=== PATIENT | male | born 1930 | race Caucasian/White ===

== ENCOUNTER 2017-10-27 09:23 | Emergency (ER) | payer MEDICARE, OTHER ==
[2017-10-27 09:23] VITALS: BMI 31.3
[2017-10-27 09:30] VITALS: BP 141/65; PULSE 82; RESP 20; TEMP 98.1; O2SAT 98
[2017-10-27] MEDS ORDERED: Albuterol 0.083% Inhal Sol (2.5 mg/3 mL) UD INH STA (10:26)
--- NOTE | 2017-10-27 10:29 | ED PDOC ---
HPI: CCC, URI, Sore Throat Time Seen by Provider: 10/27/17 09:44 Chief Complaint (Nursing): Cough, Cold, Congestion Chief Complaint (Provider): Cough History Per: Patient History/Exam Limitations: no limitations Onset/Duration Of Symptoms: Days (x5) Current Symptoms Are (Timing): Constant Location Of Pain: None Associated Symptoms: Cough (dry). denies: Fever, Chills, Sore Throat, Nausea, Vomiting, Diarrhea Ear Symptoms: Bilateral: None Additional Complaint(s): 87 year old male presenting with dry cough x5 days. The patient reports that for the past few days his cough has been associated with chest tightness and he feels as though he is unable to breathe. Denies fever, chills, sputum production , nausea, vomiting, diarrhea. PMD: NO PRIMARY CARE PROVIDER Past Medical History Reviewed: Historical Data, Nursing Documentation, Vital Signs Vital Signs: Last Vital Signs Temp 98.1 F 10/27/17 09:29 Pulse 82 10/27/17 09:29 Resp 20 10/27/17 09:29 BP 141/65 10/27/17 09:29 Pulse Ox 98 10/27/17 12:45 - Medical History PMH: HTN Denies: Asthma, Bronchitis - Surgical History Surgical History: CABG (x4), Coronary Stent (x7) - Family History Family History: States: Unknown Family Hx - Social History Current smoker - smoking cessation education provided: No Ex-Smoker (has not smoked in the last 12 months): No Alcohol: None Drugs: Denies - Immunization History Hx Tetanus Toxoid Vaccination: No Hx Influenza Vaccination: No Hx Pneumococcal Vaccination: Yes - Home Medications Home Medications: Ambulatory Orders Medication Instructions Recorded Diovan 1 tab DAILY 03/26/15 Metoprolol Succinate 1 tab DAILY 03/26/15 Aspirin 325 mg PO DAILY 05/27/17 Valsartan [Diovan] 320 mg PO DAILY 05/27/17 Aspirin [Aspirin Chewable] 81 mg PO DAILY #90 chew 07/23/17 Clopidogrel [Plavix] 75 mg PO DAILY #90 tab 07/23/17 Enoxaparin [Lovenox] 30 mg SC DAILY syr 07/23/17 Famotidine [Pepcid] 20 mg PO BID tab 07/23/17 Fluticasone Propionate [Flonase] 1 spr KAVON DAILY PRN bottle 07/23/17 Fluticasone Propionate [Flonase] 1 spr KAVON Q4 PRN bottle 07/23/17 Metoprolol Tartrate [Lopressor] 12.5 mg PO BID tab 07/23/17 Rosuvastatin Calcium [Crestor] 20 mg PO HS tab 07/23/17 Albuterol HFA [Ventolin HFA 90 2 puff IH [id number] #1 inh 10/27/17 mcg/actuation (8 g)] Azithromycin [Z-Selvin] 250 mg PO ASDIR #6 tab 10/27/17 guaiFENesin/Dextromethorphan 1 tab PO BID #20 tab 10/27/17 [guaiFENesin/DM 600-30 mg] - Allergies Allergies/Adverse Reactions: Allergies Allergy/AdvReac Type Severity Reaction Status Date / Time Influenza Virus Vaccines Allergy Verified 10/17/17 08:24 morphine Allergy ANAPHYLAXIS Verified 10/17/17 08:15 Penicillins Allergy RASH Verified 10/17/17 08:15 Review of Systems ROS Statement: Except As Marked, All Systems Reviewed And Found Negative Constitutional: Negative for: Fever, Chills Respiratory: Positive for: Cough (dry) Gastrointestinal: Negative for: Nausea, Vomiting, Diarrhea Physical Exam - Reviewed Nursing Documentation Reviewed: Yes Vital Signs Reviewed: Yes - Physical Exam Appears: Positive for: Non-toxic, No Acute Distress Head Exam: Positive for: ATRAUMATIC, NORMAL INSPECTION, NORMOCEPHALIC Skin: Positive for: Normal Color, Warm, Dry. Negative for: Rash Eye Exam: Positive for: Normal appearance, EOMI, PERRL. Negative for: Nystagmus ENT: Positive for: Normal ENT Inspection Neck: Positive for: Normal, Painless ROM, Supple Cardiovascular/Chest: Positive for: Regular Rate, Rhythm, Chest Non Tender ( scar on chest from CABG). Negative for: Tachycardia Respiratory: Positive for: Normal Breath Sounds. Negative for: Rhonchi, Wheezing, Respiratory Distress Gastrointestinal/Abdominal: Positive for: Normal Exam, Bowel Sounds, Soft. Negative for: Tenderness, Guarding, Rebound Back: Positive for: Normal Inspection, L CVA Tenderness. Negative for: R CVA Tenderness Extremity: Positive for: Normal ROM Neurologic/Psych: Positive for: Alert, Oriented - Laboratory Results Result Diagrams: 10/27/17 10:45 10/27/17 10:45 - ECG ECG: Positive for: Interpreted By Me, Viewed By Me ECG Rhythm: Positive for: Normal QRS, Normal ST Segment, Sinus Rhythm (79bpm) O2 Sat by Pulse Oximetry: 98 (RA) Pulse Ox Interpretation: Normal - Radiology X-Ray: Interpreted by Me, Viewed By Me, Read By Radiologist X-Ray Interpretation: No Acute Disease - Progress Re-evaluation Time: 12:30 Condition: Re-examined, Improved Medical Decision Making Medical Decision Makin Initial Impression 87 y/o male presenting with cough Differential: Acute bronchitis r/o pneumonia Initial Plan: * EKG * B-type natriuretic * BMP * Troponin * CBC * Chest x-ray * Blood Culture * Albuterol 2.5mg INH * Reevaluation EKG Performed: Normal at 79 bpm 1141 Chest PA and lateral FINDINGS: LUNGS: No active pulmonary disease. PLEURA: No significant pleural effusion identified. No pneumothorax apparent. CARDIOVASCULAR: Prior sternotomy with sternal wires and surgical clips in place. Atherosclerotic aortic calcifications. Cardiomediastinal silhouette prominent. OSSEOUS STRUCTURES: Degenerative changes. VISUALIZED UPPER ABDOMEN: Normal. OTHER FINDINGS: None. IMPRESSION: No active disease. Documented by Rekha Parker acting as a scribe for Bisi Ball MD. All medical record entries made by the Scribe were at my direction and personally dictated by me. I have reviewed the chart and agree that the record accurately reflects my personal performance of the history, physical exam, medical decision making, and the department course for this patient. I have also personally directed, reviewed, and agree with the discharge instructions and disposition. Disposition - Clinical Impression Clinical Impression: Chest congestion, Cough, Acute bronchitis - Patient ED Disposition Is Patient to be Admitted: No Doctor Will See Patient In The: Office Counseled Patient/Family Regarding: Studies Performed, Diagnosis, Need For Followup - Disposition Referrals: [facility] [Outside] Disposition: Routine/Home Disposition Time: 12:41 Condition: GOOD Additional Instructions: Take your medications as instructed., Follow up with your PCP in 2-3 days. Prescriptions: Albuterol HFA [Ventolin HFA 90 mcg/actuation (8 g)] 2 puff IH [id number] #1 inh Azithromycin [Z-Selvin] 250 mg PO ASDIR #6 tab guaiFENesin/Dextromethorphan [guaiFENesin/DM 600-30 mg] 1 tab PO BID #20 tab Instructions: Acute Bronchitis (ED) - Pt Status Changed To: Hospital Disposition Of: Inpatient - Admit Certification Admit to Inpatient:: After my assessment, the patient will require hospitalization for at least two midnights. This is because of the severity of symptoms shown, intensity of services needed, and/or the medical risk in this patient being treated as an outpatient.
[2017-10-27 11:00] LABS: BASO % 0.4 % (0.0-2.0); EOS # 0.2 K/uL (0.0-0.7); EOS % 1.8 % (0.0-4.0); HEMOGLOBIN 11.9 g/dL (12.0-18.0); LYMPH % 24.3 % (20.0-40.0); MEAN CELL VOLUME 87.3 fl (80.0-94.0); MEAN CORPUSCULAR HEMOGLOBIN 28.5 pg (27.0-31.0); MEAN CORPUSCULAR HGB CONC 32.7 g/dL (33.0-37.0); MEAN PLATELET VOLUME 8.5 fl (7.2-11.7); MONO # 0.5 K/uL (0.0-0.8); MONO % 6.4 % (0.0-10.0); NEUT # 5.6 K/uL (1.8-7.0); NEUT % 67.1 % (50.0-75.0); RBC 4.18 Mil/uL (4.40-5.90); RED CELL DISTRIBUTION WIDTH 14.1 % (11.5-14.5); WHITE BLOOD COUNT 8.4 K/uL (4.8-10.8)
[2017-10-27 11:20] LABS: BLOOD UREA NITROGEN 22 mg/dl (9-20); CALCIUM 8.8 mg/dL (8.4-10.2); GFR AFRICAN-AMERICAN > 60; GFR NON-AFRICAN AMERICAN > 60
[2017-10-27 11:33] LABS: B-TYPE NATRIURETIC PEPTIDE 540 pg/ml (0-900)
--- NOTE | 2017-10-27 11:45 | RAD ---
HISTORY: cough congestion COMPARISON: No prior. TECHNIQUE: Chest PA and lateral FINDINGS: LUNGS: No active pulmonary disease. PLEURA: No significant pleural effusion identified. No pneumothorax apparent. CARDIOVASCULAR: Prior sternotomy with sternal wires and surgical clips in place. Atherosclerotic aortic calcifications. Cardiomediastinal silhouette prominent. OSSEOUS STRUCTURES: Degenerative changes. VISUALIZED UPPER ABDOMEN: Normal. OTHER FINDINGS: None. IMPRESSION: No active disease.
--- NOTE | 2017-10-28 08:11 | CARD ---
APPROVED REPORT EKG Measurement Heart [id number] <Conclusion> Normal sinus rhythm Normal ECG
== END 2017-10-27 13:30 | disposition home or self-care (01) ==
LOC: H.ER 09:23
DX: J20.9 Acute bronchitis, unspecified (principal); I10 Essential (primary) hypertension; Z79.82 Long term (current) use of aspirin; Z87.891 Personal history of nicotine dependence; Z88.0 Allergy status to penicillin; Z95.1 Presence of aortocoronary bypass graft; Z95.5 Presence of coronary angioplasty implant and graft

== ENCOUNTER 2018-12-17 18:24 | Inpatient (IN) | payer MEDICARE ==
[2018-12-17 18:24] VITALS: BMI 31.3
[2018-12-17] MEDS ORDERED: Sodium Chloride 0.9% 1,000 ML IV STA (19:30)
[2018-12-17 20:46] LABS: BASO % 0.2 % (0.0-2.0); HEMOGLOBIN 11.4 g/dL (12.0-18.0); LYMPH # 1.2 K/uL (1.0-4.3); LYMPH % 8.3 % (20.0-40.0); MEAN CELL VOLUME 87.3 fl (80.0-94.0); MEAN CORPUSCULAR HEMOGLOBIN 28.9 pg (27.0-31.0); MEAN CORPUSCULAR HGB CONC 33.1 g/dL (33.0-37.0); MEAN PLATELET VOLUME 9.5 fl (7.2-11.7); MONO % 6.5 % (0.0-10.0); NEUT # 12.6 K/uL (1.8-7.0); NRBC % 0.1 % (0.0-0.0); PLATELET COUNT 177 K/uL (130-400); RBC 3.94 Mil/uL (4.40-5.90); RED CELL DISTRIBUTION WIDTH 14.9 % (11.5-14.5); WHITE BLOOD COUNT 14.8 K/uL (4.8-10.8)
[2018-12-17 20:54] LABS: ALB/GLOB RATIO 1.2 (1.0-2.1); ALBUMIN 3.6 g/dL (3.5-5.0); CALCIUM 8.9 mg/dL (8.4-10.2)
[2018-12-17 21:04] LABS: URINE BACTERIA FEW (<OCC); URINE BILIRUBIN NEGATIVE (NEGATIVE); URINE BLOOD LARGE (NEGATIVE); URINE CLARITY CLOUDY (Clear); URINE COLOR YELLOW (YELLOW); URINE GLUCOSE (UA) NEG (NEGATIVE); URINE LEUKOCYTE ESTERASE LARGE Leu/uL (Negative); URINE PROTEIN 100 mg/dL (NEGATIVE); URINE UROBILINOGEN 0.2-1.0 mg/dL (0.2-1.0)
--- NOTE | 2018-12-17 21:06 | ED PDOC ---
History of Present Illness History of Present Illness: 88 year old male presents to the ED complaining of bodyaches and fever for 2 days. On Friday, patient was out in the ice and states he got sick thereafter and has fever, bodyaches, and chills. Patient reports he did receive the flu vaccine from Dr. Bahena but documented in a chart that he has a flu allergy. Denies any cough, urinary symptoms, nausea, vomiting, or diarrhea. PMD: Yfn Collins HPI: Influenza Time Seen by Provider: 12/17/18 19:19 Chief Complaint: Flu-like Symptoms Chief Complaint (Provider): Bodyaches and fever History Per: Patient Exam Limitations: no limitations Symptoms include: fever, bodyaches Past Medical History Reviewed: Historical Data, Nursing Documentation, Vital Signs Vital Signs: Last Vital Signs Temp 100.2 F H 12/17/18 18:32 Pulse 96 H 12/17/18 18:32 Resp 18 12/17/18 18:32 BP 121/64 12/17/18 18:32 Pulse Ox 99 12/17/18 18:32 - Medical History PMH: CAD, HTN Denies: Asthma, Bronchitis Other PMH: dyslipidemia - Surgical History Surgical History: CABG (x4), Coronary Stent (x7) Other surgeries: Bypass - Family History Family History: States: Unknown Family Hx - Immunization History Hx Tetanus Toxoid Vaccination: No Hx Influenza Vaccination: No Hx Pneumococcal Vaccination: Yes - Home Medications Home Medications: Ambulatory Orders Medication Instructions Recorded RX: Valsartan [Diovan] 320 mg PO DAILY 05/27/17 RX: Metoprolol Tartrate [Lopressor] 12.5 mg PO BID tab 07/23/17 - Allergies Allergies/Adverse Reactions: Allergies Allergy/AdvReac Type Severity Reaction Status Date / Time Influenza Virus Vaccines Allergy Verified 06/23/18 08:08 morphine Allergy ANAPHYLAXIS Verified 06/23/18 08:08 Penicillins Allergy RASH Verified 06/23/18 08:08 Review of Systems ROS Statement: Except As Marked, All Systems Reviewed And Found Negative Constitutional: Positive for: Fever, Chills, Other (Bodyaches) Respiratory: Negative for: Cough Gastrointestinal: Negative for: Nausea, Vomiting, Diarrhea Genitourinary Male: Negative for: Dysuria, Hematuria Physical Exam - Reviewed Nursing Documentation Reviewed: Yes Vital Signs Reviewed: Yes - Physical Exam Appears: Positive for: Non-toxic, No Acute Distress Head Exam: Positive for: ATRAUMATIC, NORMOCEPHALIC Skin: Positive for: Normal Color, Warm, Dry Eye Exam: Positive for: Normal appearance ENT: Positive for: Normal ENT Inspection Neck: Positive for: Normal, Painless ROM Cardiovascular/Chest: Positive for: Regular Rate, Rhythm Respiratory: Positive for: Normal Breath Sounds. Negative for: Wheezing, Respiratory Distress Gastrointestinal/Abdominal: Positive for: Normal Exam, Soft. Negative for: Tenderness Back: Positive for: L CVA Tenderness, R CVA Tenderness. Negative for: Normal Inspection, Vertebral Tenderness Extremity: Positive for: Normal ROM Neurologic/Psych: Positive for: Alert, Oriented. Negative for: Motor/Sensory Deficits Comments: Patient is febrile Medical Decision Making Medical Decision Making: Initial Impression: 88 y/o male with flu like symptoms Initial Plan: --CT abd/pelvis --CMP --Lactic acid --ED urine dipstick --CBC --Chest X-ray --Levaquin 500mg IV --Sodium chloride 1000mL IV --Tamiflu 75mg PO --Tylenol 975mg PO --Blood culture --Influenza A B stat --Urinalysis 22:34 Labs reviewed and reveal leukocytosis. Urine results are highly indicative for a UTI. Given patient's presentation and lab results, he will be admitted for pyelonephritis. Case referred to Dr. Servin. 00:20 CT Abdomen/Pelvis FINDINGS: LUNG BASES: The lung bases appear clear. No pleural effusions are seen. LIVER: Unremarkable. GALLBLADDER AND BILE DUCTS: The gallbladder appears within normal limits. No radioopaque gallstones are seen. No biliary ductal dilatation is evident. PANCREAS: Unremarkable. SPLEEN: Unremarkable. ADRENAL GLANDS: Unremarkable. KIDNEYS, URETERS, AND BLADDER: Both kidneys are normal in size and position. An approximately 1.8 x 1.9 cm cyst is noted in the postero-medial upper right renal pole. Bilateral perinephric stranding is noted. Though nonspecific, this finding can sometimes be compatible with pyelonephritis. There is no hydronephrosis or hydroureter. No urinary calculi are seen. The urinary bladder appeared normal in size and configuration. STOMACH AND BOWEL: Unremarkable appearance of the stomach. No evidence of bowel obstruction. There is mucosal wall thickening of the small and large intestine present thought compatible with enterocolitis. Infectious or inflammatory etiologies are thought most likely. Diverticulosis coli is present; most pronounced in the left hemicolon. Subtle pericolonic haziness is noted about the descending and sigmoid colon thought compatible with diverticulitis. No pericolonic abscess formation or microperforation is detected. APPENDIX: No evidence of acute appendicitis on CT examination. PERITONEUM: No free fluid. No free air. A small left inguinal hernia is present which contains fat. LYMPH NODES: No lymphadenopathy is evident. REPRODUCTIVE: Unremarkable as visualized. VASCULATURE: No evidence of abdominal aortic aneurysm. Extensive atherosclerotic vascular plaquing is present. BONES: No aggressive appearing osseous lesion. No acute osseous pathology evident. There is evidence of degenerative disc disease at L5-S1. Marginal osteophytic spurring is noted throughout the lumbar vertebrae. IMPRESSION: 1. Evidence of diffuse enterocolitis. 2. Diverticulosis coli without evidence of acute diverticulitis in the descending and sigmoid segments. 3. Bilateral perinephric stranding. Though nonspecific, this can sometimes indicate pyelonephritis. 4. A 1.8 x 1.9 cm cyst arises from the postero-medial upper right renal pole. 5. Extensive atherosclerotic vascular plaquing is present. 6. A small left inguinal hernia is noted which contains fat. 7. Evidence of degenerative disc disease at L5-S1. Scribe Attestation: Documented by Dagoberto Pringle acting as a scribe for Derek Joiner MD. Provider Scribe Attestation: All medical record entries made by the Scribe were at my direction and personally dictated by me. I have reviewed the chart and agree that the record accurately reflects my personal performance of the history, physical exam, medical decision making, and the department course for this patient. I have also personally directed, reviewed, and agree with the discharge instructions and disposition. - Laboratory Results Result Diagrams: 12/17/18 20:34 12/17/18 20:34 Lab Results: Total Bilirubin 0.7 mg/dl (0.2-1.3) 12/17/18 20:34 AST 55 U/L (17-59) 12/17/18 20:34 ALT 33 U/L (21-72) 12/17/18 20:34 Alkaline Phosphatase 70 U/L (38-126) 12/17/18 20:34 Total Protein 6.7 G/DL (6.3-8.2) 12/17/18 20:34 Albumin 3.6 g/dL (3.5-5.0) 12/17/18 20:34 Globulin 3.1 gm/dL (2.2-3.9) 12/17/18 20:34 Albumin/Globulin Ratio 1.2 (1.0-2.1) 12/17/18 20:34 - ECG O2 Sat by Pulse Oximetry: 99 (RA) Pulse Ox Interpretation: Normal Disposition - Clinical Impression Clinical Impression: Pyelonephritis - Patient ED Disposition Is Patient to be Admitted: Yes - Disposition Disposition Time: 22:35 Condition: FAIR - Pt Status Changed To: Hospital Disposition Of: Inpatient - Admit Certification Admit to Inpatient:: After my assessment, the patient will require hospitalizati on for at least two midnights. This is because of the severity of symptoms shown, intensity of services needed, and/or the medical risk in this patient being treated as an outpatient.
[2018-12-17] MEDS ORDERED: levoFLOXacin 500 mg in D5W 500 MG/100 ML BAG IVPB STA (21:09)
[2018-12-17 22:12] LABS: ANISOCYTOSIS SLIGHT; BANDS 3 % (0-2); LYMPHOCYTE 13 % (20-50); MONOCYTE 7 % (0-10); NEUTROPHIL 77 % (42-75); PLATELET ESTIMATE NORMAL (NORMAL); TOTAL CELLS COUNTED 100; TOXIC GRANULATION PRESENT
[2018-12-17] MEDS ORDERED: Sodium Chloride 0.9% 50 ML IV ONE (22:43)
[2018-12-17] MEDS ORDERED: Iodixanol 320 MG/ML 100 ML BOTTLE IV ONE (22:43)
[2018-12-17] MEDS ORDERED: levoFLOXacin 500 mg in D5W 500 MG/100 ML BAG IVPB ONE (22:49)
--- NOTE | 2018-12-18 00:06 | CP.PCM.HP ---
History of Present Illness - History of Present Illness History of Present Illness: 88 yo M with history of HTN, dyslipidemia, VA, CABG? admitted for pyelonephritis. Pt presented to ED complaining of fever and bodyaches for 2 days as well as subjective fevers. He c/o lower abdominal pain that has been somewhat relieved by tylenol given in ED, and endorses burning with urination and increased frequency of urination. He states that today he fell because he had chills and hurt his left shoulder in the fall; denies hitting his head. Relatively poor historian, not sure of his surgeries or medications. Denies cough, chest pain, shortness of breath, nausea, vomiting, or diarrhea. PMD: Yfn Collins Past Med hx: HTN, dyslipidemia, CABG? VA in 2017, (from records) Past Surg hx: knee replacement? CABG? Fam hx: noncontributory Social hx: lives alone; children live in [place]; states at baseline he is indep endent Meds: valsartan, atorvastatin, metoprolol but pt unsure of doses Allergies: penicillin ED course Vitals: T 100.2, BP 121/64, HR 96, RR 18, O2 sat 99 on room air CBC: leukocytosis, 14.8; CMP K 3.5; MATT? Urinalysis: positive nitrate, large leuk esterase; 902 WBC, large blood Lactic acid 1.1 Neg flu Abd/Pelvis CT done Present on Admission - Present on Admission Any Indicators Present on Admission: No Review of Systems - Constitutional Constitutional: Chills, Fever - Cardiovascular Cardiovascular: absent: Chest Pain - Respiratory Respiratory: absent: Cough, Dyspnea - Genitourinary Genitourinary: Dysuria, Urinary Frequency. absent: Flank Pain Past Patient History - Infectious Disease Hx of Infectious Diseases: None - Past Medical History & Family History Past Medical History?: Yes - Past Social History Smoking Status: Never Smoked Alcohol: None Drugs: Denies Home Situation {Lives}: Alone - CARDIAC Hx Hypertension: Yes - PULMONARY Hx Asthma: No Hx Bronchitis: No - HEENT Hx HEENT Problems: Yes Hx Cataracts: Yes - MUSCULOSKELETAL/RHEUMATOLOGICAL Hx Falls: No - GASTROINTESTINAL Hx Gastrointestinal Disorders: Yes Other/Comment: Intestinal Obstruction, Perforation, Peritonitis - PSYCHIATRIC Hx Substance Use: No - SURGICAL HISTORY Hx Coronary Artery Bypass Graft: Yes (x4) Hx Coronary Stent: Yes (x7) - ANESTHESIA Hx Anesthesia: Yes Hx Anesthesia Reactions: No Hx Malignant Hyperthermia: No Meds Allergies/Adverse Reactions: Allergies Allergy/AdvReac Type Severity Reaction Status Date / Time Influenza Virus Vaccines Allergy Verified 06/23/18 08:08 morphine Allergy ANAPHYLAXIS Verified 06/23/18 08:08 Penicillins Allergy RASH Verified 06/23/18 08:08 Physical Exam - Constitutional Appears: No Acute Distress - Head Exam Head Exam: ATRAUMATIC - Eye Exam Eye Exam: Normal appearance - ENT Exam ENT Exam: Mucous Membranes Dry - Respiratory Exam Respiratory Exam: Clear to Auscultation Bilateral, NORMAL BREATHING PATTERN. absent: Wheezes, Respiratory Distress - Cardiovascular Exam Cardiovascular Exam: REGULAR RHYTHM, +S1, +S2 - GI/Abdominal Exam GI & Abdominal Exam: Normal Bowel Sounds, Soft, Tenderness (suprapubic) - Extremities Exam Extremities exam: Negative for: calf tenderness Additional comments: noted during exam that pt has limited ROM of L shoulder; when asked stated that he fell and hit L shoulder cannot abduct past 90 degrees - Back Exam Back exam: NORMAL INSPECTION. absent: CVA tenderness (L), CVA tenderness (R) - Neurological Exam Neurological exam: Alert - Skin Skin Exam: Dry, Warm Results - Vital Signs Recent Vital Signs: Last Vital Signs Temp 97.8 F 12/17/18 22:41 Pulse 96 H 12/17/18 18:32 Resp 18 12/17/18 18:32 BP 121/64 12/17/18 18:32 Pulse Ox 99 12/17/18 23:32 - Labs Result Diagrams: 12/17/18 20:34 12/17/18 20:34 Labs: Laboratory Results - last 24 hr 12/17/18 12/17/18 12/17/18 20:34 20:34 20:34 WBC 14.8 H D RBC 3.94 L Hgb 11.4 L Hct 34.4 L MCV 87.3 MCH 28.9 MCHC 33.1 RDW 14.9 H Plt Count 177 MPV 9.5 Neut % (Auto) 85.0 H Lymph % (Auto) 8.3 L [place] % (Auto) 6.5 Eos % (Auto) 0.0 Baso % (Auto) 0.2 Neut # (Auto) 12.6 H Lymph # (Auto) 1.2 [place] # (Auto) 1.0 H Eos # (Auto) 0.0 Baso # (Auto) 0.0 Neutrophils % (Manual) 77 H Band Neutrophils % 3 H Lymphocytes % (Manual) 13 L Monocytes % (Manual) 7 Toxic Granulation Present Platelet Estimate Normal Anisocytosis (manual) Slight Sodium 138 Potassium 3.5 L Chloride 100 Carbon Dioxide 25 Anion Gap 17 BUN 26 H Creatinine 1.4 Est GFR ( Amer) 58 Est GFR (Non-Af Amer) 48 Random Glucose 131 H Lactic Acid 1.1 Calcium 8.9 Total Bilirubin 0.7 AST 55 ALT 33 Alkaline Phosphatase 70 Total Protein 6.7 Albumin 3.6 Globulin 3.1 Albumin/Globulin Ratio 1.2 Urine Color Urine Clarity Urine pH Ur Specific [place] Urine Protein Urine Glucose (UA) Urine Ketones Urine Blood Urine Nitrate Urine Bilirubin Urine Urobilinogen Ur Leukocyte Esterase Urine RBC (Auto) Urine Microscopic WBC Urine Bacteria Influenza Typ A,B (EIA) 12/17/18 12/17/18 20:34 20:34 WBC RBC Hgb Hct MCV MCH MCHC RDW Plt Count MPV Neut % (Auto) Lymph % (Auto) [place] % (Auto) Eos % (Auto) Baso % (Auto) Neut # (Auto) Lymph # (Auto) [place] # (Auto) Eos # (Auto) Baso # (Auto) Neutrophils % (Manual) Band Neutrophils % Lymphocytes % (Manual) Monocytes % (Manual) Toxic Granulation Platelet Estimate Anisocytosis (manual) Sodium Potassium Chloride Carbon Dioxide Anion Gap BUN Creatinine Est GFR ( Amer) Est GFR (Non-Af Amer) Random Glucose Lactic Acid Calcium Total Bilirubin AST ALT Alkaline Phosphatase Total Protein Albumin Globulin Albumin/Globulin Ratio Urine Color Yellow Urine Clarity Cloudy Urine pH 7.0 Ur Specific [place] 1.014 Urine Protein 100 Urine Glucose (UA) Neg Urine Ketones Negative Urine Blood Large Urine Nitrate Positive H Urine Bilirubin Negative Urine Urobilinogen 0.2-1.0 Ur Leukocyte Esterase Large Urine RBC (Auto) 45 H Urine Microscopic WBC 902 H Urine Bacteria Few H Influenza Typ A,B (EIA) Negative for flu a/b Assessment & Plan - Assessment and Plan (Free Text) Assessment: 88 yo M with hx HTN, CAD, CABG, VA, admitted for pyelonephritis; observed to have L shoulder limited ROM. Plan: Pyelonephritis - Continue with levofloxacin; 750 mg daily IV; s/p 500 mg IV in ED - s/p 1L bolus; continue hydration at 75 ml/hr - Urine Culture - Tylenol, ibuprofen for pain - F/u final CT report Left Shoulder Trauma - L shoulder xrays; if nothing evident may consider further imaging like MRI - PT/OT History of HTN/CAD/HLD - Monitor BP; normotensive in ED - No home meds in amb orders; pt states he takes atorvastatin; verify w/ pharmacy in am Diet - Heart Healthy - Protonix DVT prophylaxis - SCDs for now Pt seen/discussed w/ Dr. Servin.
[2018-12-18 06:36] LABS: BASO % 0.2 % (0.0-2.0); EOS % 0.2 % (0.0-4.0); HEMOGLOBIN 11.3 g/dL (12.0-18.0); LYMPH # 1.5 K/uL (1.0-4.3); MEAN CELL VOLUME 87.9 fl (80.0-94.0); MEAN CORPUSCULAR HEMOGLOBIN 29.3 pg (27.0-31.0); MEAN CORPUSCULAR HGB CONC 33.3 g/dL (33.0-37.0); MEAN PLATELET VOLUME 8.8 fl (7.2-11.7); MONO % 6.8 % (0.0-10.0); NEUT # 12.5 K/uL (1.8-7.0); NEUT % 82.8 % (50.0-75.0); RBC 3.84 Mil/uL (4.40-5.90); RED CELL DISTRIBUTION WIDTH 14.5 % (11.5-14.5); WHITE BLOOD COUNT 15.1 K/uL (4.8-10.8)
[2018-12-18 06:45] LABS: CALCIUM 8.6 mg/dL (8.4-10.2)
[2018-12-18] MEDS ORDERED: levoFLOXacin 250 mg in D5W 250 MG/50 ML BAG IVPB SCH (09:00)
[2018-12-18] MEDS ORDERED: levoFLOXacin 750 mg in D5W 750 MG/150 ML BAG IVPB SCH (09:00)
[2018-12-18] MEDS ORDERED: levoFLOXacin 750 mg in D5W 150 ML BAG IVPB SCH (09:00)
[2018-12-18] MEDS: Pantoprazole 40 mg EC Tab PO SCH (09:19)
[2018-12-18] MEDS: Sodium Chloride 0.9% 1,000 ML IV SCH ×2 (09:22→17:25)
[2018-12-18] MEDS ORDERED: levoFLOXacin 250 mg in D5W 250 MG/50 ML BAG IVPB ONE (09:47)
--- NOTE | 2018-12-18 10:43 | RAD ---
Date of service: 12/18/2018 PROCEDURE: Radiographs of the Left Shoulder HISTORY: pain, limited ROM, possible trauma COMPARISON: No prior. FINDINGS: BONES: No acute fracture JOINTS: Mild glenohumeral osteoarthritis. No articular erosion. Acromioclavicular degenerative arthritis. SOFT TISSUES: Normal. OTHER FINDINGS: None. 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
[2018-12-18 11:21] LABS: INR 1.3; PROTHROMBIN TIME 14.2 Seconds (9.8-13.1)
[2018-12-18 11:23] LABS: PARTIAL THROMBOPLASTIN TIME 30.3 Seconds (25.6-37.1)
[2018-12-18] MEDS: Enoxaparin 40 mg Syringe SC SCH (12:05)
--- NOTE | 2018-12-18 12:47 | RAD ---
Date of service: 12/17/2018 HISTORY: cough COMPARISON: 10/27/2017 FINDINGS: LUNGS: No active pulmonary disease. PLEURA: No significant pleural effusion identified, no pneumothorax apparent. CARDIOVASCULAR: No radiographic findings to suggest acute or significant cardiovascular disease. Incidental Finding(s): Postoperative changes related to sternotomy. Atherosclerotic calcifications identified primarily aortic arch. OSSEOUS STRUCTURES: No significant abnormalities. VISUALIZED UPPER ABDOMEN: Normal. OTHER FINDINGS: None. IMPRESSION: No active disease. No significant interval change compared to the prior examination(s).
--- NOTE | 2018-12-18 16:34 | CT ---
Date of service: 12/17/2018 PROCEDURE: CT Abdomen and Pelvis with contrast HISTORY: flank pain/UTI COMPARISON: None. TECHNIQUE: Contrast dose: 90 mL Visipaque 320 Radiation dose: Total exam DLP = 986.31 mGy-cm. This CT exam was performed using one or more of the following dose reduction techniques: Automated exposure control, adjustment of the mA and/or kV according to patient size, and/or use of iterative reconstruction technique. FINDINGS: LOWER THORAX: Minimal bilateral gynecomastia. Status post CABG. LIVER: Unremarkable. No gross lesion or ductal dilatation. GALLBLADDER AND BILE DUCTS: Unremarkable. PANCREAS: Unremarkable. No gross lesion or ductal dilatation. SPLEEN: Unremarkable. ADRENALS: Unremarkable. No mass. KIDNEYS AND URETERS: No calculus or hydronephrosis. Bilateral rounded low-density renal masses. 1.8 cm lower pole right kidney. Multiple in left kidney, largest exophytic upper pole, 1.7 cm. Likely cysts. VASCULATURE: Unremarkable. No aortic aneurysm. There is atherosclerotic calcification of the abdominal and iliac vessels. BOWEL: Sigmoid diverticulosis. No evidence of diverticulitis. No bowel obstruction. No other abnormal bowel loops. APPENDIX: Not definitely identified. No secondary findings to suggest acute appendicitis. PERITONEUM: No ascites or pneumoperitoneum. Left inguinal hernia containing only mesenteric fat. LYMPH NODES: Unremarkable. No enlarged lymph nodes. BLADDER: Mild bladder wall thickening. Possible cystitis. Correlate with urinalysis. REPRODUCTIVE: Normal prostate BONES: No acute fracture. OTHER FINDINGS: None. IMPRESSION: Mildly thickened bladder wall. Possible cystitis. Correlate with urinalysis. Sigmoid diverticulosis without evidence of diverticulitis. Small left inguinal hernia containing only mesenteric fat. No herniated bowel. The preliminary findings for this examination were reported by [facility] at 12:19 a.m. on 12/18/2018. There is discordance of this report with the preliminary findings. There is not felt to be evidence of enterocolitis on this examination. In addition, the finding of mild bladder wall thickening was not described in the preliminary report of this examination.
[2018-12-19] MEDS ORDERED: Simethicone 40 mg/0.6 ml Liquid (30 ml) PO ONE (02:05)
[2018-12-19] MEDS: Sodium Chloride 0.9% 1,000 ML IV SCH ×2 (02:56→16:04)
--- NOTE | 2018-12-19 07:58 | CT ---
Date of service: 12/19/2018 PROCEDURE: CT HEAD WITHOUT CONTRAST. HISTORY: right leg burning/numbness COMPARISON: None available. TECHNIQUE: Axial computed tomography images were obtained through the head/brain without intravenous contrast. Radiation dose: Total exam DLP = 853.32 mGy-cm. This CT exam was performed using one or more of the following dose reduction techniques: Automated exposure control, adjustment of the mA and/or kV according to patient size, and/or use of iterative reconstruction technique. FINDINGS: HEMORRHAGE: No intracranial hemorrhage. BRAIN: No mass effect or edema. Chronic periventricular white matter ischemic disease. Right basal ganglia lacune. VENTRICLES: Unremarkable. No hydrocephalus. CALVARIUM: Unremarkable. PARANASAL SINUSES: Unremarkable as visualized. No significant inflammatory changes. MASTOID AIR CELLS: Unremarkable as visualized. No inflammatory changes. OTHER FINDINGS: None. IMPRESSION: No acute hemorrhage.
[2018-12-19] MEDS: Enoxaparin 40 mg Syringe SC SCH (08:54)
[2018-12-19] MEDS: Pantoprazole 40 mg EC Tab PO SCH (08:54)
[2018-12-19 08:55] LABS: BASO % 0.3 % (0.0-2.0); EOS # 0.1 K/uL (0.0-0.7); EOS % 0.6 % (0.0-4.0); HEMOGLOBIN 11.7 g/dL (12.0-18.0); LYMPH % 7.7 % (20.0-40.0); MEAN CELL VOLUME 87.4 fl (80.0-94.0); MEAN CORPUSCULAR HEMOGLOBIN 29.4 pg (27.0-31.0); MEAN CORPUSCULAR HGB CONC 33.6 g/dL (33.0-37.0); MONO # 0.6 K/uL (0.0-0.8); MONO % 4.6 % (0.0-10.0); NEUT # 10.8 K/uL (1.8-7.0); NEUT % 86.8 % (50.0-75.0); RED CELL DISTRIBUTION WIDTH 15.1 % (11.5-14.5); WHITE BLOOD COUNT 12.4 K/uL (4.8-10.8)
[2018-12-19 09:51] LABS: BLOOD UREA NITROGEN 14 mg/dl (9-20); CALCIUM 8.6 mg/dL (8.4-10.2); GFR NON-AFRICAN AMERICAN > 60
--- NOTE | 2018-12-19 10:45 | CP.PCM.PN ---
Subjective - Date & Time of Evaluation Date of Evaluation: 12/19/18 Time of Evaluation: 08:10 - Subjective Subjective: Patient see and examined bedside. reports had fever yesterday afternoon and was feeling abdominal discomfort and gassy but it subsided. able to have breakfast. reports urinating more amount and normal color. denies fever, chest pain,SOB ,n,v,d, abd pain. hemodynamically stable. Objective - Vital Signs/Intake and Output Vital Signs (last 24 hours): Temp Pulse Resp BP Pulse Ox 98.3 F 80 19 161/72 H 96 12/19/18 08:03 12/19/18 08:03 12/19/18 08:03 12/19/18 08:03 12/19/18 08:03 - Medications Medications: Current Medications Acetaminophen (Tylenol 325mg Tab) 650 mg PO Q6 PRN PRN Reason: Pain, Mild (1-3) Enoxaparin Sodium (Lovenox) 40 mg SC DAILY [facility]; Protocol Last Admin: 12/19/18 08:54 Dose: 40 mg Sodium Chloride (Sodium Chloride 0.9%) 1,000 mls @ 75 mls/hr IV .[id number] [facility] Last Admin: 12/19/18 02:56 Dose: 75 mls/hr Levofloxacin/Dextrose (Levaquin 750mg) 750 mg in 150 mls @ 100 mls/hr IVPB DAILY [facility]; Protocol Ibuprofen (Motrin Tab) 600 mg PO Q6H PRN PRN Reason: Pain, moderate (4-7) Last Admin: 12/18/18 21:04 Dose: 600 mg Losartan Potassium (Cozaar) 100 mg PO DAILY [facility] Metoprolol Tartrate (Lopressor) 12.5 mg PO BID [facility] Last Admin: 12/19/18 09:03 Dose: 12.5 mg Pantoprazole Sodium (Protonix Ec Tab) 40 mg PO DAILY [facility] Last Admin: 12/19/18 08:54 Dose: 40 mg Tamsulosin HCl (Flomax) 0.4 mg PO DAILY [facility] Last Admin: 12/19/18 08:54 Dose: 0.4 mg - Labs Labs: 12/19/18 06:50 12/19/18 06:50 PT 14.2 Seconds (9.8-13.1) H 12/18/18 09:10 INR 1.3 12/18/18 09:10 APTT 30.3 Seconds (25.6-37.1) 12/18/18 09:10 - Constitutional Appears: No Acute Distress - Respiratory Exam Respiratory Exam: Clear to Ausculation Bilateral. absent: Rhonchi, Wheezes - Cardiovascular Exam Cardiovascular Exam: REGULAR RHYTHM, +S1, +S2 - GI/Abdominal Exam GI & Abdominal Exam: Soft, Normal Bowel Sounds. absent: Tenderness - Extremities Exam Extremities Exam: Normal Inspection - Neurological Exam Neurological Exam: Alert, Awake - Psychiatric Exam Psychiatric exam: Normal Affect - Skin Skin Exam: Intact Assessment and Plan - Assessment and Plan (Free Text) Plan: 88 yo M with hx HTN, CAD, CABG, [place], admitted for pyelonephritis resulted bacteremia, on levaquin IV , wbc trending down, afebrile since yesterday afternoon. HAd Hx/o fall , observed to have L shoulder limited ROM. Plan: sepsis -SIRS +URine abn -c/w levaquin IV Bacteremia -2/2 Pyelonephritis -Blood cx gram neg rods Pyelonephritis - Continue with levofloxacin; 750 mg daily IV; s/p 500 mg IV in ED - s/p 1L bolus -continue hydration at 75 ml/hr - f/u urine cx - Tylenol, ibuprofen for pain Left Shoulder Trauma - L shoulder xrays; glenohumeral OA, AC OA - tylenol pain control Hx/o fall -reported right leg numbness last night -CT head normal History of HTN/CAD/HLD - Monitor BP; normotensive in ED - No home meds in amb orders; pt states he takes atorvastatin; verify w/ pharmacy in am Diet - Heart Healthy - Protonix DVT prophylaxis - lovenox
[2018-12-19] MEDS ORDERED: Potassium Chloride 20 mEq ER Tab PO ONE (13:55)
--- NOTE | 2018-12-19 14:16 | CARD ---
APPROVED REPORT Date of service: 12/19/2018 EXAM: Two-dimensional and M-mode echocardiogram with Doppler and color Doppler. Other Information Quality : AverageRhythm : NSR INDICATION Infection: Surgery/Intervention CABG: Date: 1968 Status/Post Intervention: Stent 2D DIMENSIONS IVSd0.94 (0.7-1.1cm)LVDd3.66 (3.9-5.9cm) PWd0.88 (0.7-1.1cm)IVSs0.96 (0.8-1.2cm) LVDs2.87 (2.5-4.0cm)FS (%) 21.5 % PWs0.99 (0.8-1.2cm) Aortic Valve AoV Peak Dqoinsbi612.7cm/sAoV VTI20.0cmAO Peak GR.8mmHg LVOT Peak Pdpclnyb05.0cm/sLVOT VTI16.61cmAO Mean GR.5mmHg Mitral Valve E/A ratio0.0 TDI E/Lateral E'0.0E/Medial E'0.0 Tricuspid Valve TR Peak Fktzriko155bg/sRAP XESUCYZC63hmSbYW Peak Gr.18mmHg [id number] LEFT VENTRICLE The left ventricle is normal size. There is normal left ventricular wall thickness. The left ventricular systolic function is normal. The estimated ejection fraction is 50-55% No regional wall motion abnormalities noted.. Transmitral Doppler flow pattern is Grade I-abnormal relaxation pattern. No left ventricle thrombus noted on this study. There is no ventricular septal defect visualized. There is no left ventricular aneurysm. There is no mass noted in the left ventricle. RIGHT VENTRICLE The right ventricle is normal size. There is normal right ventricular wall thickness. The right ventricular systolic function is normal. ATRIA The left atrium is mildly dilated. The right atrium size is normal. The interatrial septum is intact with no evidence for an atrial septal defect. AORTIC VALVE The aortic valve is normal in structure. No aortic regurgitation is present. There is no aortic valvular stenosis. There is no aortic valvular vegetation. MITRAL VALVE The mitral valve is normal in structure. There is no evidence of mitral valve prolapse. There is no mitral valve stenosis. There is no mitral valve regurgitation noted. TRICUSPID VALVE The tricuspid valve is normal in structure. There is trace tricuspid valve regurgitation noted. RVSP is calculated at 25 mm Hg. There is no tricuspid valve prolapse or vegetation. There is no tricuspid valve stenosis. PULMONIC VALVE The pulmonary valve is normal in structure. There is no pulmonic valvular regurgitation. There is no pulmonic valvular stenosis. GREAT VESSELS The aortic root is normal in size. The ascending aorta is normal in size. The pulmonary artery is normal. The IVC is normal in size and collapses >50% with inspiration. PERICARDIAL EFFUSION There is no pericardial effusion. There is no pleural effusion. <Conclusion> Technically difficult study. The estimated ejection fraction is 50-55% Transmitral Doppler flow pattern is Grade I-abnormal relaxation pattern. The left atrium is mildly dilated. There is trace tricuspid valve regurgitation noted. RVSP is calculated at 25 mm Hg. The IVC is normal in size and collapses >50% with inspiration. No vegetations visualized on this technically difficult study. Correlate clinically.
[2018-12-19] MEDS: levoFLOXacin 750 mg in D5W 750 MG/150 ML BAG IVPB SCH (22:31)
[2018-12-20] MEDS: Sodium Chloride 0.9% 1,000 ML IV SCH ×4 (00:29→18:40)
[2018-12-20] MEDS ORDERED: Nasal Spray(Ocean spray) NAS PRN (00:40)
[2018-12-20 07:03] LABS: BASO % 0.4 % (0.0-2.0); EOS # 0.1 K/uL (0.0-0.7); EOS % 1.3 % (0.0-4.0); HEMOGLOBIN 11.3 g/dL (12.0-18.0); LYMPH # 1.3 K/uL (1.0-4.3); LYMPH % 14.3 % (20.0-40.0); MEAN CORPUSCULAR HEMOGLOBIN 29.4 pg (27.0-31.0); MEAN CORPUSCULAR HGB CONC 33.8 g/dL (33.0-37.0); MONO # 0.7 K/uL (0.0-0.8); MONO % 8.4 % (0.0-10.0); NEUT # 6.6 K/uL (1.8-7.0); NEUT % 75.6 % (50.0-75.0); NRBC % 0.1 % (0.0-0.0); RBC 3.84 Mil/uL (4.40-5.90); WHITE BLOOD COUNT 8.7 K/uL (4.8-10.8)
[2018-12-20 07:12] LABS: ALB/GLOB RATIO 0.9 (1.0-2.1); ALBUMIN 2.9 g/dL (3.5-5.0); ALT/SGPT 83 U/L (21-72); AST/SGOT 98 U/L (17-59); BLOOD UREA NITROGEN 11 mg/dl (9-20); CALCIUM 8.1 mg/dL (8.4-10.2); GFR NON-AFRICAN AMERICAN > 60
[2018-12-20] MEDS: levoFLOXacin 750 mg in D5W 750 MG/150 ML BAG IVPB SCH (08:40)
[2018-12-20] MEDS: Pantoprazole 40 mg EC Tab PO SCH (08:42)
[2018-12-20] MEDS: Enoxaparin 40 mg Syringe SC SCH (08:42)
--- NOTE | 2018-12-20 11:02 | CP.PCM.PN ---
Subjective - Date & Time of Evaluation Date of Evaluation: 12/20/18 Time of Evaluation: 07:15 - Subjective Subjective: Patient see and examined bedside. reports feeling better, good urine output, denies fever, dysuria, flank pain. tolerating regular diet. initial Blood cx E coli +ESBL. contact precaution. will consult ID Objective - Vital Signs/Intake and Output Vital Signs (last 24 hours): Temp Pulse Resp BP Pulse Ox 98.2 F 77 19 154/75 H 95 12/20/18 08:57 12/20/18 08:57 12/20/18 08:57 12/20/18 08:57 12/20/18 08:57 - Medications Medications: Current Medications Acetaminophen (Tylenol 325mg Tab) 650 mg PO Q6 PRN PRN Reason: Pain, Mild (1-3) Enoxaparin Sodium (Lovenox) 40 mg SC DAILY [facility]; Protocol Last Admin: 12/20/18 08:42 Dose: 40 mg Fluticasone Propionate (Flonase) 1 spr KAVON BID [facility] Last Admin: 12/20/18 08:41 Dose: 1 spr Sodium Chloride (Sodium Chloride 0.9%) 1,000 mls @ 75 mls/hr IV .[id number] [facility] Last Admin: 12/20/18 08:40 Dose: Not Given Levofloxacin/Dextrose (Levaquin 750mg) 750 mg in 150 mls @ 100 mls/hr IVPB DAILY [facility]; Protocol Last Admin: 12/20/18 08:40 Dose: 100 mls/hr Ibuprofen (Motrin Tab) 600 mg PO Q6H PRN PRN Reason: Pain, moderate (4-7) Last Admin: 12/18/18 21:04 Dose: 600 mg Losartan Potassium (Cozaar) 100 mg PO DAILY [facility] Last Admin: 12/20/18 08:41 Dose: 100 mg Metoprolol Tartrate (Lopressor) 12.5 mg PO BID [facility] Last Admin: 12/20/18 08:41 Dose: 12.5 mg Pantoprazole Sodium (Protonix Ec Tab) 40 mg PO DAILY [facility] Last Admin: 12/20/18 08:42 Dose: 40 mg Sodium Chloride ([place] Nasal [place]) 2 sprays KAVON Q4 PRN PRN Reason: Nasal congestion Last Admin: 12/20/18 00:52 Dose: 2 spr Tamsulosin HCl (Flomax) 0.4 mg PO DAILY [facility] Last Admin: 12/20/18 08:41 Dose: 0.4 mg - Labs Labs: 12/20/18 05:30 12/20/18 05:30 PT 14.2 Seconds (9.8-13.1) H 12/18/18 09:10 INR 1.3 12/18/18 09:10 APTT 30.3 Seconds (25.6-37.1) 12/18/18 09:10 - Constitutional Appears: No Acute Distress - Respiratory Exam Respiratory Exam: Clear to Ausculation Bilateral - Cardiovascular Exam Cardiovascular Exam: REGULAR RHYTHM, +S1, +S2 - GI/Abdominal Exam GI & Abdominal Exam: Normal Bowel Sounds. absent: Tenderness Additional comments: mild distended baseline, no tympanic. old surgical scar lower abd. - Neurological Exam Neurological Exam: Alert, Awake - Skin Skin Exam: Intact Assessment and Plan - Assessment and Plan (Free Text) Plan: 88 yo M with hx HTN, CAD, CABG, [place], admitted for pyelonephritis resulted bacteremia, on levaquin IV , wbc trending down today 8,7, afebrile, blood cx ecoli sensitive to cipro, +ESBL on contact prec and ID called for consult. HAd Hx/o fall , observed to have L shoulder limited ROM 1) sepsis on admission -resolving -SIRS +URine abn(UTI) -c/w levaquin IV day 2 today 2) Bacteremia -2/2 Pyelonephritis -Blood cx eoli sensi to cipro,+ ESBL -contact precations -ID consult suggested 3) Pyelonephritis - Continue with levofloxacin; 750 mg daily IV s/p 500 mg IV in ED - urine cx no growth -CT abdomen showed cystitis - Tylenol, ibuprofen for pain 4)Left Shoulder Trauma - L shoulder xrays; glenohumeral OA, AC OA - tylenol pain control 5)Hx/o fall -CT head normal 6) HTN -c/w losartan 7) DVT prophylaxis - lovenox 49 mg sc daily
[2018-12-20] MEDS ORDERED: Meropenem 1 GM in Sodium Chloride 0.9% 100 ML IVPB ONE (11:32)
[2018-12-20] MEDS ORDERED: Potassium Chloride 20 mEq ER Tab PO ONE (11:33)
[2018-12-20] MEDS: Meropenem 1 GM in Sodium Chloride 0.9% 100 ML IVPB SCH (21:49)
[2018-12-21] MEDS: Sodium Chloride 0.9% 1,000 ML IV SCH (06:32)
[2018-12-21 09:35] LABS: BASO % 0.3 % (0.0-2.0); EOS # 0.3 K/uL (0.0-0.7); EOS % 3.1 % (0.0-4.0); HEMOGLOBIN 11.3 g/dL (12.0-18.0); LYMPH # 1.4 K/uL (1.0-4.3); LYMPH % 16.3 % (20.0-40.0); MEAN CELL VOLUME 86.1 fl (80.0-94.0); MEAN CORPUSCULAR HEMOGLOBIN 29.4 pg (27.0-31.0); MEAN CORPUSCULAR HGB CONC 34.1 g/dL (33.0-37.0); MEAN PLATELET VOLUME 9.1 fl (7.2-11.7); MONO # 0.8 K/uL (0.0-0.8); MONO % 8.9 % (0.0-10.0); NEUT # 6.2 K/uL (1.8-7.0); NEUT % 71.4 % (50.0-75.0); RBC 3.83 Mil/uL (4.40-5.90); RED CELL DISTRIBUTION WIDTH 15.1 % (11.5-14.5); WHITE BLOOD COUNT 8.7 K/uL (4.8-10.8)
[2018-12-21] MEDS: Enoxaparin 40 mg Syringe SC SCH (09:44)
[2018-12-21] MEDS: Meropenem 1 GM in Sodium Chloride 0.9% 100 ML IVPB SCH (09:45)
[2018-12-21 09:46] LABS: ALT/SGPT 106 U/L (21-72); AST/SGOT 98 U/L (17-59); BLOOD UREA NITROGEN 14 mg/dl (9-20); CALCIUM 8.6 mg/dL (8.4-10.2); GFR NON-AFRICAN AMERICAN > 60
[2018-12-21] MEDS: Pantoprazole 40 mg EC Tab PO SCH (09:46)
[2018-12-21] MEDS: levoFLOXacin 750 mg in D5W 750 MG/150 ML BAG IVPB SCH (09:46)
--- NOTE | 2018-12-21 10:36 | CP.PCM.CON ---
History of Present Illness - History of Present Illness History of Present Illness: Infectious Disease Consultation Note- asked to see this patient at the request of hospitalist for ESBL e.coli in blood cx. HPI- Patient is a 88 year old male with PMH of HTN, dyslipidemia, CAD s/p CABG, who was admitted with c/o fever and bodyaches and pain with urination along with cloudy urine and urinary frequency and lower abdominal fever. patient states he feels much better now . he states his dysurea and lower abd pain has all resolved. I'm asked to see the patient because his blood cx grew e.coli ESBL and he was on levaquin prior to this and he has responded well to that as per hospitalist. advised since it's esbl in blood cx he needs to be on IV meropenem . shaheen has rash to PCN but he was started on IV meropnem yesterday and has tolerated it well. Today i'm being told by the hospitalist that pt. states he must go home and take care of some things at home and wants to be d/c but promises to come to infusion center daily to get his IV antibiotics . he denies any fever or chills, denies any dysurea or any abdominal pain now, denies any nausea or vomiting, denies any cough or sob, denies nay chest pain. PMD: Yfn Collins Past Med hx: HTN, dyslipidemia, CABG? [place] in 2017, (from records) Past Surg hx: knee replacement? CABG? Fam hx: noncontributory Social hx: lives alone; children live in [place]; states at baseline he is independent Meds: valsartan, atorvastatin, metoprolol but pt unsure of doses Allergies: penicillin Review of Systems - Review of Systems Review of Systems: ROS- denies any fever or chills, denies any FLANAGAN, alina any cough or sob, denies any chest pain, denies any abd. pain now but had it before, denies any more dysurea but had it on admission, denies any diarrhea. Past Patient History - Infectious Disease Hx of Infectious Diseases: None - Past Medical History & Family History Past Medical History?: Yes - Past Social History Smoking Status: Never Smoked Alcohol: None Drugs: Denies Home Situation {Lives}: Alone - CARDIAC Hx Hypertension: Yes - PULMONARY Hx Respiratory Disorders: No - NEUROLOGICAL Hx Neurological Disorder: No - HEENT Hx HEENT Problems: Yes Hx Cataracts: Yes - RENAL Hx Chronic Kidney Disease: No - ENDOCRINE/METABOLIC Hx Endocrine Disorders: No - HEMATOLOGICAL/ONCOLOGICAL Hx Blood Disorders: No - INTEGUMENTARY Hx Dermatological Problems: No - MUSCULOSKELETAL/RHEUMATOLOGICAL Hx Falls: No - GASTROINTESTINAL Hx Gastrointestinal Disorders: Yes Other/Comment: Intestinal Obstruction, Perforation, Peritonitis - GENITOURINARY/GYNECOLOGICAL Hx Genitourinary Disorders: No - PSYCHIATRIC Hx Substance Use: No - SURGICAL HISTORY Hx Coronary Artery Bypass Graft: Yes (x4) Hx Coronary Stent: Yes (x7) - ANESTHESIA Hx Anesthesia: Yes Hx Anesthesia Reactions: No Hx Malignant Hyperthermia: No Meds Home Medications: Home Medication List Medication Instructions Recorded Confirmed Type MEROPENEM 500 MG in NS [Merrem IV 500 mg IV Q12 #28 bag 12/21/18 Rx 500 MG/NS 50 ML] Allergies/Adverse Reactions: Allergies Allergy/AdvReac Type Severity Reaction Status Date / Time morphine Allergy ANAPHYLAXIS Verified 06/23/18 08:08 Penicillins Allergy RASH Verified 06/23/18 08:08 - Medications Medications: Current Medications Acetaminophen (Tylenol 325mg Tab) 650 mg PO Q6 PRN PRN Reason: Pain, Mild (1-3) Enoxaparin Sodium (Lovenox) 40 mg SC DAILY [facility]; Protocol Last Admin: 12/21/18 09:44 Dose: 40 mg Fluticasone Propionate (Flonase) 1 spr KAVON BID [facility] Last Admin: 12/21/18 09:43 Dose: 1 spr Sodium Chloride (Sodium Chloride 0.9%) 1,000 mls @ 75 mls/hr IV .[id number] [facility] Last Admin: 12/21/18 06:32 Dose: 75 mls/hr Meropenem 1 gm/ Sodium (Chloride) 100 mls @ 100 mls/hr IVPB Q12 [facility]; Protocol Last Admin: 12/21/18 09:45 Dose: 100 mls/hr Ibuprofen (Motrin Tab) 600 mg PO Q6H PRN PRN Reason: Pain, moderate (4-7) Last Admin: 12/20/18 22:58 Dose: 600 mg Lactulose (Enulose) 10 gm PO DAILY PRN PRN Reason: Constipation Losartan Potassium (Cozaar) 100 mg PO DAILY [facility] Last Admin: 12/21/18 09:42 Dose: 100 mg Metoprolol Tartrate (Lopressor) 12.5 mg PO BID [facility] Last Admin: 12/21/18 09:44 Dose: 12.5 mg Pantoprazole Sodium (Protonix Ec Tab) 40 mg PO DAILY [facility] Last Admin: 12/21/18 09:46 Dose: 40 mg Sodium Chloride ([place] Nasal [place]) 2 sprays [facility] Q4 PRN PRN Reason: Nasal congestion Last Admin: 12/20/18 00:52 Dose: 2 spr Tamsulosin HCl (Flomax) 0.4 mg PO DAILY [facility] Last Admin: 12/21/18 09:43 Dose: 0.4 mg Physical Exam - Constitutional Appears: No Acute Distress - Head Exam Head Exam: ATRAUMATIC - Eye Exam Eye Exam: EOMI, PERRL - ENT Exam ENT Exam: Normal Oropharynx - Neck Exam Neck exam: Positive for: Full Rom - Respiratory Exam Respiratory Exam: Clear to Auscultation Bilateral, NORMAL BREATHING PATTERN - Cardiovascular Exam Cardiovascular Exam: RRR, +S1, +S2 - GI/Abdominal Exam GI & Abdominal Exam: Normal Bowel Sounds, Soft Additional comments: NT, Nd NO CVA tenderness B/L - Extremities Exam Extremities exam: Positive for: normal inspection - Neurological Exam Neurological exam: Alert, Oriented x3 Results - Vital Signs Recent Vital Signs: Last Vital Signs Temp 98.9 F 12/21/18 08:46 Pulse 71 12/21/18 09:44 Resp 20 12/21/18 08:46 BP 148/55 L 12/21/18 09:44 Pulse Ox 95 12/21/18 08:46 - Labs Result Diagrams: 12/21/18 09:07 12/21/18 09:07 Labs: Laboratory Results - last 24 hr 12/21/18 12/21/18 09:07 09:07 WBC 8.7 RBC 3.83 L Hgb 11.3 L Hct 33.0 L MCV 86.1 MCH 29.4 MCHC 34.1 RDW 15.1 H Plt Count 220 MPV 9.1 Neut % (Auto) 71.4 Lymph % (Auto) 16.3 L [place] % (Auto) 8.9 Eos % (Auto) 3.1 Baso % (Auto) 0.3 Neut # (Auto) 6.2 Lymph # (Auto) 1.4 [place] # (Auto) 0.8 Eos # (Auto) 0.3 Baso # (Auto) 0.0 Sodium 140 Potassium 3.8 Chloride 107 Carbon Dioxide 23 Anion Gap 14 BUN 14 Creatinine 1.0 Est GFR ( Amer) > 60 Est GFR (Non-Af Amer) > 60 Random Glucose 87 Calcium 8.6 Total Bilirubin 0.3 AST 98 H ALT 106 H D Alkaline Phosphatase 73 Total Protein 6.0 L Albumin 3.0 L Globulin 3.0 Albumin/Globulin Ratio 1.0 Laboratory Results - last 72 hr 12/19/18 12/19/18 12/20/18 06:50 06:50 05:30 WBC 12.4 H 8.7 RBC 4.00 L 3.84 L Hgb 11.7 L 11.3 L Hct 35.0 33.4 L MCV 87.4 87.0 MCH 29.4 29.4 MCHC 33.6 33.8 RDW 15.1 H 15.0 H Plt Count 172 181 MPV 9.0 9.0 Neut % (Auto) 86.8 H 75.6 H Lymph % (Auto) 7.7 L 14.3 L [place] % (Auto) 4.6 8.4 Eos % (Auto) 0.6 1.3 Baso % (Auto) 0.3 0.4 Neut # (Auto) 10.8 H 6.6 Lymph # (Auto) 1.0 1.3 [place] # (Auto) 0.6 0.7 Eos # (Auto) 0.1 0.1 Baso # (Auto) 0.0 0.0 Sodium 140 Potassium 3.5 L Chloride 105 Carbon Dioxide 22 Anion Gap 17 BUN 14 Creatinine 1.0 Est GFR ( Amer) > 60 Est GFR (Non-Af Amer) > 60 Random Glucose 98 Calcium 8.6 Total Bilirubin AST ALT Alkaline Phosphatase Total Protein Albumin Globulin Albumin/Globulin Ratio 12/20/18 12/21/18 12/21/18 05:30 09:07 09:07 WBC 8.7 RBC 3.83 L Hgb 11.3 L Hct 33.0 L MCV 86.1 MCH 29.4 MCHC 34.1 RDW 15.1 H Plt Count 220 MPV 9.1 Neut % (Auto) 71.4 Lymph % (Auto) 16.3 L [place] % (Auto) 8.9 Eos % (Auto) 3.1 Baso % (Auto) 0.3 Neut # (Auto) 6.2 Lymph # (Auto) 1.4 [place] # (Auto) 0.8 Eos # (Auto) 0.3 Baso # (Auto) 0.0 Sodium 138 140 Potassium 3.5 L 3.8 Chloride 104 107 Carbon Dioxide 24 23 Anion Gap 14 14 BUN 11 14 Creatinine 1.1 1.0 Est GFR ( Amer) > 60 > 60 Est GFR (Non-Af Amer) > 60 > 60 Random Glucose 99 87 Calcium 8.1 L 8.6 Total Bilirubin 0.4 0.3 AST 98 H D 98 H ALT 83 H D 106 H D Alkaline Phosphatase 62 73 Total Protein 6.1 L 6.0 L Albumin 2.9 L 3.0 L Globulin 3.2 3.0 Albumin/Globulin Ratio 0.9 L 1.0 Microbiology 12/17/18 20:34 Blood Blood Culture - Preliminary Gram Negative Rony 12/17/18 20:34 Blood Gram Stain - Final 12/18/18 20:00 Blood Blood Culture - Preliminary NO GROWTH AFTER 48 HOURS 12/18/18 20:00 Blood Blood Culture - Preliminary NO GROWTH AFTER 48 HOURS 12/17/18 20:05 Blood Blood Culture - Final Escherichia Coli 12/17/18 20:05 Blood Gram Stain - Final 12/18/18 09:50 Urine,Clean Catch Urine Culture - Final No Growth (<1,000 CFU/ML) Assessment & Plan (1) Pyelonephritis Status: Acute (2) Bacteremia, escherichia coli Status: Acute - Assessment and Plan (Free Text) Assessment: A/P- 88 year old male with CAD, HTN , dyslipidemia admitted with lower abd pain , dysurea found to have + UA and yesterday his blood cx was reported as E.coli ESBL from 12/17/2018. patietn is clinically much improved and is afebrile and normal wbc count. admission UA pos for nitrate and LE urine cx- neg blood cx from 12/17/2018- e.coli ESBL reported 12/20/2018. TTE- no vegetations as per report. plan- advise 14 days of either IV meropnem or IV ertapenem ( if patient wants to go home and come daily to infusion center or home IV infusion ). his repeat blood cx are negative x 2. pt. has tolerated meropenem well so far without any rash or itching. advise to monitor closely for any rash or itching and if he notices that to notify his PMD . check repeat UA and 2 blood cx upon completion of his antibiotic regimen. patient advised to f/u closely with his PMD. All above d/w patient and he verbalizes full understanding of all above and agrees with above plan of care. Thank you for allowing me to take part in the care of this patient. d/w as well.
--- NOTE | 2018-12-21 12:42 | CP.PCM.DIS ---
Provider - Provider Date of Admission: 12/17/18 22:34 Attending physician: Johanne Servin MD Primary care physician: Dr. Yfn Bahena Consults: 12/20/18 11:27 Infectious Disease Consult Routine Comment: ESBL in blood Consulting Provider: Rolf Sears Consulting Physician: Rolf Sears Reason for Consult: ESBL E. Coli in Blood 12/20/18 19:38 Case Management Referral Routine Comment: Physician Instructions: Reason For Exam: Reason for Referral: Discharge Planning Time Spent in preparation of Discharge (in minutes): 15 Diagnosis - Discharge Diagnosis (1) Bacteremia, escherichia coli Status: Acute Comment: Blood Cx ESBL +, Second Blood Cx no growth @24hrs, Echo showed no vegetations, received PICC Line. Pt will receive Home infusion of Meropenum for 14 days. F/u with ID Dr. Sears upon completion of treatment. F/u with PMD Dr. Yfn Bahena in 1 week (2) Shoulder pain, left Status: Acute Comment: L shoulder pain secondary to OA. c/w pain control outpt (3) Cystitis Status: Acute Comment: Blood Cx ESBL +, Second Blood Cx no growth @24hrs, Echo showed no vegetations,received PICC Line. Pt will receive Home infusion of Meropenum for 14 days. F/u with ID Dr. Sears upon completion of treatment. F/u with PMD Dr. Yfn Bahena in 1 week (4) Sepsis Status: Acute Comment: Resolved (5) Hypertension Status: Acute Comment: C/w home meds Metoprolol and Losartan (6) CAD (coronary artery disease) Status: Acute Comment: Chronic,Stable. c/w home meds Hospital Course - Lab Results Lab Results: Micro Results 12/17/18 20:34 Blood Blood Culture - Preliminary Gram Negative Rony 12/17/18 20:34 Blood Gram Stain - Final 12/18/18 20:00 Blood Blood Culture - Preliminary NO GROWTH AFTER 48 HOURS 12/18/18 20:00 Blood Blood Culture - Preliminary NO GROWTH AFTER 48 HOURS 12/17/18 20:05 Blood Blood Culture - Final Escherichia Coli 12/17/18 20:05 Blood Gram Stain - Final 12/18/18 09:50 Urine,Clean Catch Urine Culture - Final No Growth (<1,000 CFU/ML) Most Recent Lab Values WBC 8.7 K/uL (4.8-10.8) 12/21/18 09:07 RBC 3.83 Mil/uL (4.40-5.90) L 12/21/18 09:07 Hgb 11.3 g/dL (12.0-18.0) L 12/21/18 09:07 Hct 33.0 % (35.0-51.0) L 12/21/18 09:07 MCV 86.1 fl (80.0-94.0) 12/21/18 09:07 MCH 29.4 pg (27.0-31.0) 12/21/18 09:07 MCHC 34.1 g/dL (33.0-37.0) 12/21/18 09:07 RDW 15.1 % (11.5-14.5) H 12/21/18 09:07 Plt Count 220 K/uL (130-400) 12/21/18 09:07 MPV 9.1 fl (7.2-11.7) 12/21/18 09:07 Neut % (Auto) 71.4 % (50.0-75.0) 12/21/18 09:07 Lymph % (Auto) 16.3 % (20.0-40.0) L 12/21/18 09:07 [place] % (Auto) 8.9 % (0.0-10.0) 12/21/18 09:07 Eos % (Auto) 3.1 % (0.0-4.0) 12/21/18 09:07 Baso % (Auto) 0.3 % (0.0-2.0) 12/21/18 09:07 Neut # (Auto) 6.2 K/uL (1.8-7.0) 12/21/18 09:07 Lymph # (Auto) 1.4 K/uL (1.0-4.3) 12/21/18 09:07 [place] # (Auto) 0.8 K/uL (0.0-0.8) 12/21/18 09:07 Eos # (Auto) 0.3 K/uL (0.0-0.7) 12/21/18 09:07 Baso # (Auto) 0.0 K/uL (0.0-0.2) 12/21/18 09:07 Neutrophils % (Manual) 77 % (42-75) H 12/17/18 20:34 Band Neutrophils % 3 % (0-2) H 12/17/18 20:34 Lymphocytes % (Manual) 13 % (20-50) L 12/17/18 20:34 Monocytes % (Manual) 7 % (0-10) 12/17/18 20:34 Toxic Granulation Present 12/17/18 20:34 Platelet Estimate Normal (NORMAL) 12/17/18 20:34 Anisocytosis (manual) Slight 12/17/18 20:34 PT 14.2 Seconds (9.8-13.1) H 12/18/18 09:10 INR 1.3 12/18/18 09:10 APTT 30.3 Seconds (25.6-37.1) 12/18/18 09:10 Sodium 140 mmol/l (132-148) 12/21/18 09:07 Potassium 3.8 MMOL/L (3.6-5.0) 12/21/18 09:07 Chloride 107 mmol/L (98-107) 12/21/18 09:07 Carbon Dioxide 23 mmol/L (22-30) 12/21/18 09:07 Anion Gap 14 (10-20) 12/21/18 09:07 BUN 14 mg/dl (9-20) 12/21/18 09:07 Creatinine 1.0 mg/dl (0.8-1.5) 12/21/18 09:07 Est GFR ( Amer) > 60 12/21/18 09:07 Est GFR (Non-Af Amer) > 60 12/21/18 09:07 Random Glucose 87 mg/dL (75-110) 12/21/18 09:07 Lactic Acid 1.1 mmol/L (0.7-2.1) 12/17/18 20:34 Calcium 8.6 mg/dL (8.4-10.2) 12/21/18 09:07 Total Bilirubin 0.3 mg/dl (0.2-1.3) 12/21/18 09:07 AST 98 U/L (17-59) H 12/21/18 09:07 ALT 106 U/L (21-72) H D 12/21/18 09:07 Alkaline Phosphatase 73 U/L (38-126) 12/21/18 09:07 Total Protein 6.0 G/DL (6.3-8.2) L 12/21/18 09:07 Albumin 3.0 g/dL (3.5-5.0) L 12/21/18 09:07 Globulin 3.0 gm/dL (2.2-3.9) 12/21/18 09:07 Albumin/Globulin Ratio 1.0 (1.0-2.1) 12/21/18 09:07 Urine Color Yellow (YELLOW) 12/17/18 20:34 Urine Clarity Cloudy (Clear) 12/17/18 20:34 Urine pH 7.0 (5.0-8.0) 12/17/18 20:34 Ur Specific [place] 1.014 (1.003-1.030) 12/17/18 20:34 Urine Protein 100 mg/dL (NEGATIVE) 12/17/18 20:34 Urine Glucose (UA) Neg mg/dL (NEGATIVE) 12/17/18 20:34 Urine Ketones Negative mg/dL (NEGATIVE) 12/17/18 20:34 Urine Blood Large (NEGATIVE) 12/17/18 20:34 Urine Nitrate Positive (NEGATIVE) H 12/17/18 20:34 Urine Bilirubin Negative (NEGATIVE) 12/17/18 20:34 Urine Urobilinogen 0.2-1.0 mg/dL (0.2-1.0) 12/17/18 20:34 Ur Leukocyte Esterase Large [place]/uL (Negative) 12/17/18 20:34 Urine RBC (Auto) 45 /hpf (0-3) H 12/17/18 20:34 Urine Microscopic WBC 902 /hpf (0-5) H 12/17/18 20:34 Urine Bacteria Few (<OCC) H 12/17/18 20:34 Influenza Typ A,B (EIA) Negative for flu a/b (NEGATIVE) 12/17/18 20:34 - Hospital Course Hospital Course: 88 yo M with history of HTN, dyslipidemia, MO, CABG, CAD presented with gen eralized body aches and fever for 2 days. Pt was admitted for with sepsis and pyleonephritis. CT of abdomen showed cystitis, UA many bacteria, LE and nitrates, started on IVF and Levaquin IV, Urine cx no growth. Blood cultures showed ESBL E.Coli. Echo report no vegetations. Pt received PICC line and will be receiving IV Meropenum home infusion for 14 days. ID advised to monitor closely for any rash or itching and if he notices that to notify his PMD. Check repeat UA and 2 blood cx upon completion of his antibiotic regimen. Follow up with PMD in [address] Sears upon completion of antibiotics. - Date & Time of H&P Date of H&P: 12/21/18 Time of H&P: 09:00 Discharge Exam - Head Exam Head Exam: ATRAUMATIC, NORMAL INSPECTION, NORMOCEPHALIC - Eye Exam Eye Exam: EOMI - ENT Exam ENT Exam: Mucous Membranes Moist - Respiratory Exam Respiratory Exam: Clear to PA & Lateral, NORMAL BREATHING PATTERN - Cardiovascular Exam Cardiovascular Exam: RRR, +S1, +S2 - GI/Abdominal Exam GI & Abdominal Exam: Normal Bowel Sounds - Extremities Exam Extremities exam: normal inspection - Neurological Exam Neurological exam: Alert, Oriented x3 Discharge Plan - Discharge Medications Prescriptions: MEROPENEM 500 MG in NS [Merrem IV 500 MG/NS 50 ML] 500 mg IV Q12 #28 bag - Follow Up Plan Condition: FAIR Disposition: HOME/ ROUTINE Instructions: Peripherally-Inserted Central Catheter (DC), Urinary Tract Infection in Men (DC) Additional Instructions: follow up with dr bahena 1 week Follow up with Dr. Sears at end of treatment [facility] [address] [place] [id number] Referrals: Yfn Bahena MD [Family Provider] -
[2018-12-21] MEDS ORDERED: Lidocaine Hydrochloride 5 ML INJ ONE (13:25)
[2018-12-21 13:53] VITALS: TEMP 98.4
--- NOTE | 2018-12-21 14:05 | PCM.SURG1 ---
Surgeon's Initial Post Op Note - Surgeon's Notes Surgeon: Suresh Washington MD Consumer Affairs Specialist: NONE Type of Anesthesia: Local Pre-Operative Diagnosis: Infection Operative Findings: US showed a patent right basilic vein. Post-Operative Diagnosis: Infection Operation Performed: SIngle lumen picc, 37 cm, via the right basilic vein. Tip in SVC. Specimen/Specimens Removed: NONE Estimated Blood Loss: EBL {In ML}: 2 Blood Products Given: N/A Drains Used: No Drains Post-Op Condition: Fair Date of Surgery/Procedure: 12/21/18 Time of Surgery/Procedure: 13:55
[2018-12-21 16:28] VITALS: BP 160/64; PULSE 89; RESP 20; O2SAT 97
--- NOTE | 2018-12-23 12:54 | VASCULAR ---
PROCEDURE: Date of procedure: 12/21/2018 Procedure: 1. Placement of a right arm PICC with ultrasound and fluoroscopic guidance, CPT 41790 2. PICC tip confirmation with spot radiograph and is in the superior vena cava Medications: 1 percent lidocaine Total Fluoro time: 1.4 seconds Radiation: 0.28 MGy EBL: 2 cc HISTORY: Infection requiring long-term IV antibiotics TECHNIQUE: Following informed consent and procedure time-out, the patient was placed supine on the interventional table and the right arm prepped and draped in the usual sterile fashion. Ultrasound showed a patent and compressible right basilic vein. After the skin was anesthetized with lidocaine, the basilic vein was accessed with micro micropuncture technique using ultrasound guidance. A guidewire was then advanced under fluoroscopic guidance into the superior vena cava. An image documenting ultrasound guidance for vascular access was permanently saved. The length of the single-lumen 4 [place] PICC was trimmed to 37 centimeters and advanced through a peel-away sheath. The PICC was position with tip of PICC confirm a spot radiograph the superior vena cava. The PICC was secured to the patient's skin. The PICC was flushed. A biopatch and sterile dressing was applied. IMPRESSION: Placement of a single-lumen 4 [place] PICC trimmed to 37 centimeters via right basilic vein. The tip of the PICC is confirmed with spot radiograph and is in the superior vena cava.
== END 2018-12-21 18:25 | disposition home or self-care (01) | DRG 872 ==
LOC: H.ER 18:24 → H.ERHOLD 22:34 → H.MEDSURG1 12-18 02:03
PROVIDERS: ADMIT Internal Medicine; ATTEND Internal Medicine
PROC: 02HV33Z Insertion of Infusion Device into Superior Vena Cava, Percutaneous Approach (ICD-10-PCS; principal; 2018-12-21)
DX: A41.51 Sepsis due to Escherichia coli [E. coli] (principal); I25.10 Atherosclerotic heart disease of native coronary artery without angina pectoris; Z95.1 Presence of aortocoronary bypass graft; Z95.5 Presence of coronary angioplasty implant and graft; E78.5 Hyperlipidemia, unspecified; I25.2 Old myocardial infarction; I10 Essential (primary) hypertension; N30.90 Cystitis, unspecified without hematuria; M19.012 Primary osteoarthritis, left shoulder; Z16.12 Extended spectrum beta lactamase (ESBL) resistance; Z88.5 Allergy status to narcotic agent; Z88.0 Allergy status to penicillin

== ENCOUNTER 2019-03-15 13:17 | Emergency (ER) | payer MEDICARE ==
[2019-03-15 13:18] VITALS: BMI 31.3
[2019-03-15] MEDS ORDERED: Iohexol 240 (50 ml) PO STA (14:12)
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
[2019-03-15 15:15] LABS: BASO % 0.4 % (0.0-2.0); EOS # 0.2 K/uL (0.0-0.7); EOS % 2.7 % (0.0-4.0); HEMOGLOBIN 12.8 g/dL (12.0-18.0); LYMPH # 1.8 K/uL (1.0-4.3); MEAN CELL VOLUME 87.5 fl (80.0-94.0); MEAN CORPUSCULAR HEMOGLOBIN 28.7 pg (27.0-31.0); MEAN CORPUSCULAR HGB CONC 32.9 g/dL (33.0-37.0); MEAN PLATELET VOLUME 9.3 fl (7.2-11.7); MONO # 0.4 K/uL (0.0-0.8); MONO % 6.6 % (0.0-10.0); NEUT # 4.3 K/uL (1.8-7.0); NEUT % 63.3 % (50.0-75.0); RBC 4.47 Mil/uL (4.40-5.90); RED CELL DISTRIBUTION WIDTH 14.7 % (11.5-14.5); WHITE BLOOD COUNT 6.8 K/uL (4.8-10.8)
[2019-03-15] MEDS ORDERED: Iohexol 240 (50 ml) ONE (15:15)
[2019-03-15 15:22] LABS: ALB/GLOB RATIO 1.4 (1.0-2.1); ALBUMIN 4.5 g/dL (3.5-5.0); ALT/SGPT 36 U/L (21-72); AST/SGOT 28 U/L (17-59); BLOOD UREA NITROGEN 15 mg/dl (9-20); CALCIUM 9.2 mg/dL (8.4-10.2); GFR NON-AFRICAN AMERICAN > 60; LIPASE 94 U/L (23-300)
[2019-03-15 15:36] LABS: INR 1.1
[2019-03-15 15:38] LABS: PARTIAL THROMBOPLASTIN TIME 32.8 Seconds (25.6-37.1)
[2019-03-15 15:55] LABS: URINE BACTERIA RARE (<OCC); URINE BILIRUBIN NEGATIVE (NEGATIVE); URINE BLOOD NEGATIVE (NEGATIVE); URINE CLARITY CLEAR (Clear); URINE COLOR STRAW (YELLOW); URINE GLUCOSE (UA) NEG (NEGATIVE); URINE LEUKOCYTE ESTERASE NEG Leu/uL (Negative); URINE PROTEIN NEGATIVE (NEGATIVE); URINE UROBILINOGEN 0.2-1.0 mg/dL (0.2-1.0)
[2019-03-15] MEDS ORDERED: Sodium Chloride 0.9% 50 ML IV ONE (16:57)
[2019-03-15] MEDS ORDERED: Iohexol 300 100 ML IJ ONE (16:57)
--- NOTE | 2019-03-15 18:17 | CT ---
Date of service: 03/15/2019 PROCEDURE: CT Abdomen and Pelvis with contrast HISTORY: R sided abd pain at level umbilicus COMPARISON: 12/17/2018. CT abdomen and pelvis. TECHNIQUE: Intravenous contrast dose: 95 cc Visipaque 320. Radiation dose: Total exam DLP = 496.35 mGy-cm. This CT exam was performed using one or more of the following dose reduction techniques: Automated exposure control, adjustment of the mA and/or kV according to patient size, and/or use of iterative reconstruction technique. FINDINGS: LOWER THORAX: Unremarkable. LIVER: Hepatic steatosis. No focal masses. No intrahepatic bile duct dilatation or perihepatic ascites. For GALLBLADDER AND BILE DUCTS: Unremarkable. PANCREAS: Unremarkable. No gross lesion or ductal dilatation. SPLEEN: Unremarkable. ADRENALS: Unremarkable. No mass. KIDNEYS AND URETERS: Mild renal cortical atrophy bilaterally. Multiple simple renal cysts. These are stable findings. No hydronephrosis. No solid mass. VASCULATURE: Unremarkable. No aortic aneurysm. No atherosclerotic calcification or mural plaque present. BOWEL: Diverticulosis without an acute inflammatory component or other associated pathologic process. This particularly extensive in the sigmoid and descending colon. No evidence of acute diverticulitis. Under distention of the stomach accounts for mucosal thickening. No focal masses identified. APPENDIX: No abnormalities to suggest acute appendicitis. No right lower quadrant inflammatory processes identified. PERITONEUM: Unremarkable. No free fluid. No free air. LYMPH NODES: Unremarkable. No enlarged lymph nodes. BLADDER: Unremarkable. REPRODUCTIVE: Unremarkable. BONES: No acute fracture. OTHER FINDINGS: None. IMPRESSION: No acute or significant findings related to/ accounting for the clinical presentation. Additional benign and/or incidental findings described above. No significant interval change compared to the prior examination(s).
[2019-03-15] MEDS ORDERED: Alum-Mag Hydrox-Simethicone Susp (30 mL) PO STA (19:14)
[2019-03-15] MEDS ORDERED: Alum-Mag Hydrox-Simethicone Susp (30 mL) ONE (19:24)
[2019-03-15 20:48] VITALS: BP 149/60; PULSE 63; RESP 17; TEMP 98.4
[2019-03-15 20:52] VITALS: O2SAT 99
== END 2019-03-15 21:12 | disposition home or self-care (01) ==
LOC: H.ER 13:17
DX: R10.9 Unspecified abdominal pain (principal)
CPT/HCPCS: 74177; 80053; 81003; 83605; 83690; 85025; 85610; 85730; 86850; 86900; 87040; 87086; 99284; Q9966; Q9967